=== PATIENT | female | born 1970 ===

== ENCOUNTER → 2022-06-28 | Outpatient (CLI) | payer BC | LOC: LAB 15:32 | DX: U07.1 COVID-19 (principal); R05.9 Cough, unspecified; J02.9 Acute pharyngitis, unspecified ==

== ENCOUNTER → 2024-05-25 | Outpatient (CLI) | payer BC ==
[2024-05-25 16:40] LABS: URINE WBC 0 /hpf (0-3)
[2024-05-25 16:49] LABS: BASO # 0.04 K/mm3 (0.02-0.10); EOS % 1.9 % (1.0-5.0); HEMATOCRIT 39.5 % (37.0-47.0); HEMOGLOBIN 12.8 g/dL (12.5-16.0); LYMPH# 1.98 K/mm3 (1.50-4.00); MEAN CELL VOLUME 93 fl (78-100); MEAN CORPUSCULAR HEMOGLOBIN 30 pg (27-31); MEAN CORPUSCULAR HGB CONC 32 g/dL (33-37); MONO # 0.45 K/mm3 (0.20-0.80); NEU # 2.72 K/mm3 (1.40-6.50); PLATELET COUNT 263 K/mm3 (130-400); RED BLOOD COUNT 4.24 M/mm3 (4.10-5.30); RED CELL DISTRIBUTION WIDTH 12.5 % (11.5-14.5); WHITE BLOOD COUNT 5.3 K/mm3 (4.8-10.8)
[2024-05-25 16:53] LABS: ALBUMIN 4.4 g/dL (3.5-5.0)
[2024-05-25 16:55] LABS: TOTAL PROTEIN 8.4 g/dL (6.4-8.3)
[2024-05-25 16:57] LABS: TOTAL BILIRUBIN 0.3 mg/dL (0.2-1.2)
[2024-05-25 17:29] LABS: URINE APPEARANCE CLEAR (CLEAR); URINE BILIRUBIN NEGATIVE (NEGATIVE); URINE BLOOD NEGATIVE (NEGATIVE); URINE COLOR YELLOW (YELLOW); URINE GLUCOSE NEGATIVE (NEGATIVE); URINE KETONE NEGATIVE (NEGATIVE); URINE LEUKOCYTE ESTERASE NEGATIVE (NEGATIVE); URINE NITRATE NEGATIVE (NEGATIVE); URINE PROTEIN(semi-quant) NEGATIVE (NEGATIVE)
== END ==
LOC: LAB 16:34
PROVIDERS: Nurse Practitioner
DX: R10.30 Lower abdominal pain, unspecified (principal)